=== PATIENT | male | born 1965 | race American Indian/Alaskan Native ===

== ENCOUNTER 2023-05-15 13:37 | Inpatient (IN) | payer BC ==
[2023-05-15] MEDS ORDERED: Dextrose 5%-Lactated Ringers 1,000 ML IV SCH (14:00)
[2023-05-15] MEDS ORDERED: Ampicillin/Sulbactam Na 3 GM in Sodium Chloride 0.9% 100 ML IV ONE ×2 (14:24→15:00)
[2023-05-15] MEDS ORDERED: Lactated Ringers 1,000 ML IV SCH ×2 (14:30→14:45)
[2023-05-15] MEDS ORDERED: Naloxone 0.4 MG/ML SDV IV PRN (14:31)
[2023-05-15] MEDS ORDERED: Neostigmine Methylsulfate 1 MG/ML 5 ML Syringe ONE (14:44)
[2023-05-15] MEDS ORDERED: fentaNYL 250 MCG/5 ML SDV ONE ×2 (14:44)
[2023-05-15] MEDS ORDERED: Acetaminophen 1,000 MG/100 ML Infusion Bottle Premix ONE (14:44)
[2023-05-15] MEDS ORDERED: Succinylcholine 200 MG/10 ML MDV ONE (14:44)
[2023-05-15] MEDS ORDERED: Rocuronium 50 MG/5 ML Vial ONE (14:44)
[2023-05-15] MEDS ORDERED: Ondansetron 4 MG/2 ML SDV ONE (14:44)
[2023-05-15] MEDS ORDERED: Propofol 200 MG/20 ML SDV ONE (14:44)
[2023-05-15] MEDS ORDERED: Glycopyrrolate 0.2 MG/ML 5 ML MDV ONE (14:44)
[2023-05-15] MEDS ORDERED: Dexamethasone 4 MG/ML SDV ONE (14:44)
[2023-05-15] MEDS ORDERED: Ketamine 500 MG/5 ML MDV IV SCH (14:45)
[2023-05-15] MEDS ORDERED: Ketamine 19 MG in Sodium Chloride 0.9% 19.81 ML IV SCH (14:45)
[2023-05-15] MEDS: HYDROmorphone/Normal Saline 6 MG/30 ML PCA Vial IV PRN ×2 (14:47→23:56)
[2023-05-15] MEDS ORDERED: Ropivacaine 40 ML, dexAMETHasone 8 MG, EPINEPHrine 0.4 MG, Sodium Chloride 0.9% 37.6 ML NERVRT SCH ×4 (15:00)
[2023-05-15] MEDS ORDERED: Lactated Ringers 1,000 ML ONE (15:47)
[2023-05-15] MEDS ORDERED: Meropenem 500 MG SDV ONE (15:55)
[2023-05-15] MEDS ORDERED: Acetaminophen 500 MG Tab PO PRN (19:29)
[2023-05-15] MEDS ORDERED: Ondansetron 4 MG/2 ML SDV IVPUSH PRN (19:30)
[2023-05-15] MEDS ORDERED: hydrOXYzine HCL 100 MG/2 ML SDV IM PRN (19:34)
[2023-05-15] MEDS ORDERED: Cyclobenzaprine 10 MG Tab PO PRN (19:35)
[2023-05-15] MEDS ORDERED: Pantoprazole 40 MG Vial IVPUSH SCH (20:00)
[2023-05-15] MEDS: Acetaminophen 500 MG Tab PO SCH (22:24)
[2023-05-15] MEDS: Ampicillin/Sulbactam Na 3 GM in Sodium Chloride 0.9% 100 ML IV SCH (22:28)
[2023-05-15] MEDS: Dextrose 5%-Lactated Ringers 1,000 ML IV SCH (23:04)
[2023-05-16] MEDS: Ampicillin/Sulbactam Na 3 GM in Sodium Chloride 0.9% 100 ML IV SCH ×4 (03:30→22:25)
[2023-05-16] MEDS: Acetaminophen 500 MG Tab PO SCH ×4 (04:05→22:25)
[2023-05-16 05:37] LABS: BASOPHILS PERCENT AUTO 0.1 % (0.1-1.3); HEMATOCRIT 37.1 % (38.4-49.7); HEMOGLOBIN 12.5 g/dL (12.9-16.9); IMMATURE GRAN ABSOLUTE AUTO 0.09 K/uL (0.00-0.23); IMMATURE GRAN PERCENT AUTO 0.6 % (0.0-0.7); LYMPHOCYTES ABSOLUTE AUTO 0.64 K/uL (0.8-3.3); LYMPHOCYTES PERCENT AUTO 4.1 % (11.4-47.7); MEAN CORPUSCULAR HEMOGLOBIN 30.9 pg (31.6-35.5); MEAN CORPUSCULAR HGB CONC 33.7 g/dL (31.6-35.5); MEAN CORPUSCULAR VOLUME 91.8 fL (81.4-99.0); MONOCYTES ABSOLUTE AUTO 0.91 K/uL (0.20-0.90); MONOCYTES PERCENT AUTO 5.9 % (3.3-12.6); NEUTROPHILS ABSOLUTE AUTO 13.88 K/uL (1.0-7.6); NEUTROPHILS PERCENT AUTO 89.3 % (40.0-78.1); PLATELET COUNT,PLT 233 K/uL (130-375); RED BLOOD CELL COUNT 4.04 M/uL (4.14-5.76); WHITE BLOOD CELL COUNT,WBC 15.5 K/uL (3.2-11.0)
[2023-05-16 05:55] LABS: BASOPHILS ABSOLUTE AUTO 0.01 K/uL (0.00-0.10)
[2023-05-16 06:11] LABS: ALANINE AMINOTRANSFERASE,ALT 79 U/L (12-78); ALBUMIN 3.4 g/dL (3.4-5.0); ALKALINE PHOSPHATASE 75 U/L (46-116); ASPARTATE AMNIOTRANSFERASE,AST 53 U/L (15-37); BILIRUBIN TOTAL 1.2 mg/dL (0.2-1.0); BLOOD UREA NITROGEN,BUN 15 mg/dL (7-18); CALCIUM 7.8 mg/dL (8.5-10.1); CARBON DIOXIDE,CO2 25 mmol/L (21-32); CHLORIDE,CL 101 mmol/L (100-108); CREATININE 1.1 mg/dL (0.8-1.3); EST CRCL DRUG DOSING (CG) 66.77 mL/min; ESTIMATED GFR 77 mL/min (>60); GLUCOSE RANDOM 154 mg/dL (74-106); MAGNESIUM 1.8 mg/dL (1.8-2.4); PHOSPHORUS 2.6 mg/dL (2.5-4.9); POTASSIUM,K 4.3 mmol/L (3.6-5.2); PROTEIN TOTAL,TP 6.8 g/dL (6.4-8.2); SODIUM,NA 135 mmol/L (140-148)
[2023-05-16 06:12] LABS: ANION GAP 13.3 mmol/L (5.0-14.0)
[2023-05-16] MEDS: Dextrose 5%-Lactated Ringers 1,000 ML IV SCH ×3 (08:28→19:45)
[2023-05-16] MEDS: Nicotine 21 MG/24 Hr Patch TRDERM SCH (08:34)
[2023-05-16] MEDS: Albuterol/Ipratropium 3.0-0.5 MG/3 ML Neb Soln NEB SCH ×3 (08:48→19:49)
[2023-05-16] MEDS: Tamsulosin 0.4 MG Cap.ER PO SCH (17:17)
[2023-05-16] MEDS: Pantoprazole 40 MG Tab.CR PO SCH (20:00)
[2023-05-16] MEDS: HYDROmorphone/Normal Saline 6 MG/30 ML PCA Vial IV PRN (20:04)
[2023-05-17] MEDS: Albuterol/Ipratropium 3.0-0.5 MG/3 ML Neb Soln NEB SCH ×4 (02:58→19:33)
[2023-05-17] MEDS: Ampicillin/Sulbactam Na 3 GM in Sodium Chloride 0.9% 100 ML IV SCH ×4 (03:49→22:14)
[2023-05-17] MEDS: Acetaminophen 500 MG Tab PO SCH ×4 (03:50→21:31)
[2023-05-17 07:01] LABS: HEMOGLOBIN 10.7 g/dL (12.9-16.9); MEAN CORPUSCULAR HEMOGLOBIN 31.1 pg (31.6-35.5); MEAN CORPUSCULAR HGB CONC 33.4 g/dL (31.6-35.5); RED BLOOD CELL COUNT 3.44 M/uL (4.14-5.76); WHITE BLOOD CELL COUNT,WBC 9.8 K/uL (3.2-11.0)
[2023-05-17 07:23] LABS: ALANINE AMINOTRANSFERASE,ALT 63 U/L (12-78); ALBUMIN 2.9 g/dL (3.4-5.0); ALKALINE PHOSPHATASE 61 U/L (46-116); ANION GAP 4.7 mmol/L (5.0-14.0); ASPARTATE AMNIOTRANSFERASE,AST 49 U/L (15-37); BILIRUBIN TOTAL 0.5 mg/dL (0.2-1.0); BLOOD UREA NITROGEN,BUN 9 mg/dL (7-18); CALCIUM 7.7 mg/dL (8.5-10.1); CARBON DIOXIDE,CO2 31 mmol/L (21-32); CHLORIDE,CL 106 mmol/L (100-108); EST CRCL DRUG DOSING (CG) 73.44 mL/min; ESTIMATED GFR 86 mL/min (>60); GLUCOSE RANDOM 135 mg/dL (74-106); POTASSIUM,K 3.8 mmol/L (3.6-5.2); PROTEIN TOTAL,TP 5.8 g/dL (6.4-8.2); SODIUM,NA 142 mmol/L (140-148)
[2023-05-17] MEDS: Tamsulosin 0.4 MG Cap.ER PO SCH ×2 (07:51→17:21)
[2023-05-17] MEDS: Dextrose 5%-Lactated Ringers 1,000 ML IV SCH ×2 (07:51→19:06)
[2023-05-17] MEDS: Docusate Sodium 100 MG Cap PO SCH ×2 (08:25→20:39)
[2023-05-17] MEDS: Nicotine 21 MG/24 Hr Patch TRDERM SCH (09:50)
[2023-05-17] MEDS: HYDROmorphone/Normal Saline 6 MG/30 ML PCA Vial IV PRN (19:05)
[2023-05-17] MEDS: Pantoprazole 40 MG Tab.CR PO SCH (20:39)
[2023-05-18] MEDS: Albuterol/Ipratropium 3.0-0.5 MG/3 ML Neb Soln NEB SCH (01:36)
[2023-05-18] MEDS: Acetaminophen 500 MG Tab PO SCH ×4 (04:25→21:20)
[2023-05-18] MEDS: Ampicillin/Sulbactam Na 3 GM in Sodium Chloride 0.9% 100 ML IV SCH ×4 (04:26→21:21)
[2023-05-18 04:35] LABS: HEMATOCRIT 31.2 % (38.4-49.7); HEMOGLOBIN 10.5 g/dL (12.9-16.9); MEAN CORPUSCULAR HGB CONC 33.7 g/dL (31.6-35.5); RED BLOOD CELL COUNT 3.39 M/uL (4.14-5.76); WHITE BLOOD CELL COUNT,WBC 5.8 K/uL (3.2-11.0)
[2023-05-18 05:00] LABS: A/G RATIO 0.8 (1.2-2.2); ALANINE AMINOTRANSFERASE,ALT 55 U/L (12-78); ALBUMIN 2.5 g/dL (3.4-5.0); ALKALINE PHOSPHATASE 57 U/L (46-116); ANION GAP 6.5 mmol/L (5.0-14.0); ASPARTATE AMNIOTRANSFERASE,AST 34 U/L (15-37); BILIRUBIN TOTAL 0.5 mg/dL (0.2-1.0); BLOOD UREA NITROGEN,BUN 9 mg/dL (7-18); CALCIUM 7.6 mg/dL (8.5-10.1); CARBON DIOXIDE,CO2 30 mmol/L (21-32); CHLORIDE,CL 107 mmol/L (100-108); CREATININE 0.9 mg/dL (0.8-1.3); ESTIMATED GFR 98 mL/min (>60); GLUCOSE RANDOM 105 mg/dL (74-106); MAGNESIUM 1.6 mg/dL (1.8-2.4); PHOSPHORUS 3.5 mg/dL (2.5-4.9); POTASSIUM,K 3.6 mmol/L (3.6-5.2); PROTEIN TOTAL,TP 5.5 g/dL (6.4-8.2); SODIUM,NA 143 mmol/L (140-148)
[2023-05-18] MEDS: Dextrose 5%-Lactated Ringers 1,000 ML IV SCH ×2 (07:14→18:49)
[2023-05-18] MEDS: Tamsulosin 0.4 MG Cap.ER PO SCH ×2 (07:44→17:32)
[2023-05-18] MEDS: Docusate Sodium 100 MG Cap PO SCH ×3 (07:45→20:02)
[2023-05-18] MEDS: Levalbuterol HCl 1.25 MG/3 ML Neb NEB SCH ×3 (07:55→19:48)
[2023-05-18] MEDS: Nicotine 21 MG/24 Hr Patch TRDERM SCH (09:45)
[2023-05-18] MEDS: Pantoprazole 40 MG Tab.CR PO SCH (20:02)
[2023-05-18] MEDS: HYDROmorphone/Normal Saline 6 MG/30 ML PCA Vial IV PRN (21:20)
[2023-05-19] MEDS: Levalbuterol HCl 1.25 MG/3 ML Neb NEB SCH ×2 (00:06→07:06)
[2023-05-19] MEDS: Acetaminophen 500 MG Tab PO SCH ×2 (03:11→09:38)
[2023-05-19] MEDS: Ampicillin/Sulbactam Na 3 GM in Sodium Chloride 0.9% 100 ML IV SCH (03:53)
[2023-05-19 05:11] LABS: PROTHROMBIN TIME 9.9 sec (9.2-10.6)
[2023-05-19 05:14] LABS: A/G RATIO 0.8 (1.2-2.2); ALANINE AMINOTRANSFERASE,ALT 64 U/L (12-78); ALKALINE PHOSPHATASE 79 U/L (46-116); ANION GAP 6.1 mmol/L (5.0-14.0); ASPARTATE AMNIOTRANSFERASE,AST 32 U/L (15-37); BILIRUBIN TOTAL 0.9 mg/dL (0.2-1.0); BLOOD UREA NITROGEN,BUN 7 mg/dL (7-18); CALCIUM 8.5 mg/dL (8.5-10.1); CARBON DIOXIDE,CO2 31 mmol/L (21-32); CHLORIDE,CL 104 mmol/L (100-108); EST CRCL DRUG DOSING (CG) 73.44 mL/min; ESTIMATED GFR 86 mL/min (>60); GLUCOSE RANDOM 104 mg/dL (74-106); MAGNESIUM 1.6 mg/dL (1.8-2.4); PHOSPHORUS 4.4 mg/dL (2.5-4.9); POTASSIUM,K 3.7 mmol/L (3.6-5.2); PROTEIN TOTAL,TP 6.7 g/dL (6.4-8.2); SODIUM,NA 141 mmol/L (140-148)
[2023-05-19] MEDS ORDERED: Bupivacaine 0.5% 50 ML MDV ONE (06:39)
[2023-05-19] MEDS ORDERED: Meropenem 500 MG SDV ONE (06:39)
[2023-05-19] MEDS ORDERED: Lidocaine 1% with EPINEPHrine 1:100,000 50 ML MDV ONE (06:39)
[2023-05-19] MEDS ORDERED: fentaNYL 100 MCG/2 ML SDV ONE (06:49)
[2023-05-19] MEDS ORDERED: Propofol 200 MG/20 ML SDV ONE ×2 (06:49→07:45)
[2023-05-19] MEDS ORDERED: Midazolam 1 MG/ML 2 ML SDV ONE (06:49)
[2023-05-19] MEDS: Dextrose 5%-Lactated Ringers 1,000 ML IV SCH (06:57)
[2023-05-19] MEDS ORDERED: Ropivacaine 40 ML, dexAMETHasone 8 MG, EPINEPHrine 0.4 MG, Sodium Chloride 0.9% 37.6 ML NERVRT SCH ×4 (07:30)
[2023-05-19] MEDS ORDERED: HYDROmorphone 2 MG Tab PO PRN (08:34)
[2023-05-19] MEDS: Tamsulosin 0.4 MG Cap.ER PO SCH (08:46)
[2023-05-19] MEDS: Docusate Sodium 100 MG Cap PO SCH (08:50)
[2023-05-19] MEDS: Nicotine 21 MG/24 Hr Patch TRDERM SCH ×2 (08:51→10:54)
== END 2023-05-19 11:29 | disposition home or self-care (01) | DRG 262 ==
LOC: JP.SDS 13:37 → JP.MS 16:00
PROVIDERS: ADMIT Surgery; ATTEND Surgery
PROC: 0FT40ZZ Resection of Gallbladder, Open Approach (ICD-10-PCS; principal; 2023-05-15)
PROC: 0WQF0ZZ Repair Abdominal Wall, Open Approach (ICD-10-PCS; 2023-05-15)
PROC: 3E0M05Z Introduction of Adhesion Barrier into Peritoneal Cavity, Open Approach (ICD-10-PCS; 2023-05-15)
PROC: 0WQF0ZZ Repair Abdominal Wall, Open Approach (ICD-10-PCS; 2023-05-19)
DX: K80.00 Calculus of gallbladder with acute cholecystitis without obstruction (principal); K43.0 Incisional hernia with obstruction, without gangrene; F17.200 Nicotine dependence, unspecified, uncomplicated; F32.A Depression, unspecified; G47.00 Insomnia, unspecified; Z88.8 Allergy status to other drugs, medicaments and biological substances
CPT/HCPCS: 36415; 80053; 83735; 84100; 85025; 85027; 85610; 87070; 87075; 87077; 87186; 87205; 88304; 94640; A9270-GY; C9113; J0131; J0171; J0295; J0330; J1100; J1170; J2185; J2250; J2405; J2704; J2710; J2795; J3010; J3490; J7120; J7121; J7612-GY; J7620; U0002